=== PATIENT | female | born 1980 | race Caucasian/White ===

== ENCOUNTER 2018-02-01 00:28 | Inpatient (IN) | payer OTHER ==
[~2018-02-01] VITALS: Ht 167.6 cm; Wt 93.6 kg
[2018-02-01] VITALS (20 sets, daily range): BP systolic 111–139; BP diastolic 56–87; PULSE 61–86; TEMP 97.6–98.3
[~2018-02-01 00:28] MED LIST: FLUOXETINE; PRENATAL1 TA1 PO
[2018-02-01] MEDS ORDERED: ZANTAC 7575 MG PO (00:49)
[2018-02-01] MEDS ORDERED: ZYRTEC 10MG10 MG PO (00:49)
[2018-02-01 01:50] LABS: BASO % 0.2 % (0.0-2.0); EOS # 0.1 (0.0-0.7); EOS % 0.6 % (0-4.0); GRAN % 70.6 % (42.2-75.2); HEMATOCRIT 37.4 % (37.0-47.0); HEMOGLOBIN 12.8 g/dl (12.5-16.0); LYMPH # 2.2 (1.2-3.4); LYMPH % 19.3 % (20.0-51.0); MEAN CELL VOLUME 90 fl (80.0-100.0); MEAN CORPUSCULAR HEMOGLOBIN 31 pg (27.0-31.0); MEAN CORPUSCULAR HGB CONC 34 g/dl (33.0-37.0); MEAN PLATELET VOLUME 11.4 fl (7.4-10.4); MONO % 8.7 % (1.7-9.3); PLATELET COUNT 188 K/mm3 (130-400); RED BLOOD COUNT 4.18 M/mm3 (4.10-5.30)
== END 2018-02-01 10:40 | disposition home or self-care (01) | DRG 805 ==
LOC: LDRO 00:28 → LDR 01:20
PROVIDERS: Student in an Organized Health Care Education/Training Program
PROC: 10E0XZZ Delivery of Products of Conception, External Approach (ICD-10-PCS; principal; 2018-02-01)
PROC: 0UQMXZZ Repair Vulva, External Approach (ICD-10-PCS; 2018-02-01)
DX: O70.0 First degree perineal laceration during delivery (principal); O99.42 Diseases of the circulatory system complicating childbirth; Z37.0 Single live birth; Z3A.39 39 weeks gestation of pregnancy; O76 Abnormality in fetal heart rate and rhythm complicating labor and delivery; O99.344 Other mental disorders complicating childbirth; F41.9 Anxiety disorder, unspecified; I34.1 Nonrheumatic mitral (valve) prolapse
CPT/HCPCS: J2590; J7120